=== PATIENT | male | born 1940 | race Caucasian/White ===

== ENCOUNTER 2018-05-08 06:26 | Observation (INO) | payer OTHER ==
[2018-05-05 08:57] LABS: BASOPHILS # (AUTO) 0.1 (0.0-0.1); BASOPHILS % 0.7 % (0.0-1.0); EOSINOPHILS % 0.4 % (0.0-6.0); HEMATOCRIT 41.7 % (38.2-49.6); HEMOGLOBIN 13.7 g/dL (14.0-18.0); LYMPHOCYTES # (AUTO) 1.2 (1.0-3.2); MEAN CORPUSCULAR HEMOGLOBIN 28.2 pg (28-32); MEAN CORPUSCULAR HGB CONC 32.9 g/dL (31-35); MONOCYTES # (AUTO) 0.6 (0.2-0.8); MONOCYTES % 9.4 % (4.4-11.3); NEUTROPHILS # (AUTO) 4.9 (2.1-6.9); NEUTROPHILS % 71.8 % (38.7-80.0); PLATELET COUNT 342 x10e3/uL (140-360); RED BLOOD COUNT 4.85 x10e6/uL (4.3-5.7); RED CELL DISTRIBUTION WIDTH 13.5 % (11.7-14.4)
[2018-05-05 09:15] LABS: ANION GAP 15.1 mmol/L (8-16); BLOOD UREA NITROGEN 14 mg/dL (7-26); BUN/CREATININE RATIO 17 (6-25); CALCIUM 9.5 mg/dL (8.4-10.2); CARBON DIOXIDE 27 mmol/L (22-29); CHLORIDE 101 mmol/L (98-107); CREATININE, SERUM 0.81 mg/dL (0.72-1.25); EST GLOMERULAR FILTRATION RATE > 60 ML/MIN (60-); GLUCOSE 103 mg/dL (74-118); POTASSIUM 4.1 mmol/L (3.5-5.1); SODIUM 139 mmol/L (136-145)
--- NOTE | 2018-05-05 09:32 | Diagnostic Imaging Report ---
PROCEDURE: Frontal and lateral views of the chest. COMPARISON: None. INDICATIONS: PRE-OPERATIVE CHEST X-RAY FOR RIGHT KNEE SURGERY FINDINGS: Lines/tubes: None. Lungs: The lungs are well inflated and clear. There is no evidence of pneumonia or pulmonary edema. Pleura: There is no pleural effusion or pneumothorax. Heart and mediastinum: The cardiomediastinal silhouette is unremarkable. Bones: No acute bony abnormality. IMPRESSION: No acute radiographic abnormality. Dictated by: BRONSON PRICE M.D. on 05/05/2018 at 9:43 Electronically approved by: BRONSON PRICE M.D. on 05/05/2018 at 9:43
[~2018-05-08] VITALS: Ht 170.2 cm; Wt 90.3 kg
[~2018-05-08 06:26] MED LIST: AMLODIPINE BESYL5 MG PO; FISH OIL 1,0001 EAC2 PO; GLUCOSAMINE &1 EACH PO; LOSARTAN-HCTZ1 EACH PO; ROPIVACAINE 246.25 MG, EPINEPHRINE HCL 1:1000 0.5 MG, CLONIDINE HCL 0.08 MG, KETOROLAC ... INJ ONE; SYSTANE GEL EYE10 ML OP; VITAMIN C500 M1 PO; VITAMIN D31000 UNI1 PO
--- OUTSIDE RECORDS SUMMARY | 2018-05-08 06:28 | XMS REPORT ---
Author Author [facility] Address Unknown Phone Unavailable Care Team Providers Care Sticker Machine Operator Name Role Phone GIAN ECHEVARRIA Unavailable Unavailable Problems This patient has no known problems. Allergies, Adverse Reactions, Alerts This patient has no known allergies or adverse reactions. Medications This patient has no known medications. Results Test Description Test Time Test Comments Text Results Atomic Results Result Comments CHEST 2 VIEWS 2018-05-05 09:43:00 [place] [address] Patient Name: KORTNEY FONSECA MR #: [id number] : 1940 Age/Sex: 78/M Req #: [id number] [facility] Physician: Ordered by: GIAN ECHEVARRIA MD Report #: [id number] Location: OR Room/Bed: Procedure: [id number] DX/CHEST 2 VIEWS Exam Date: 05/05/18 Exam Time: 913 REPORT STATUS: Signed PROCEDURE: Frontal and lateral views of the chest. COM PARISON: None. INDICATIONS: PRE-OPERATIVE CHEST X-RAY FOR RIGHT KNEE SURGERY FINDINGS: Lines/tubes: None. Lungs: The lungs are well inflated and clear. There is no evidence of pneumonia or pulmonary edema. Pleura: There is no pleural effusion or pneumothorax. Heart and mediastinum: The cardiomediastinal silhouette is unremarkable. Bones: No acute bony abnormality. IMPRESSION: No acute radiographic abnormality. Dictated by: BRONSON PRICE M.D. on 05/05/2018 at 9:43 Electronically approved by: BRONSON PRICE M.D. on 05/05/2018 at 9:43 Dictated By: BRONSON PRICE MD 2 Transcribed By: ADRIANA on 05/05/18942 COPY TO: GIAN ECHEVARRIA MD
[2018-05-08] MEDS ORDERED: DEXAMETHASONE SOD PHOS 10 MG/1 ML VIAL ONE (06:58)
[2018-05-08] MEDS ORDERED: VANCOMYCIN 1GM/NS 250 ML 250 ML ONE (06:58)
[2018-05-08] MEDS ORDERED: CELECOXIB 200 MG CAP ONE (06:58)
[2018-05-08] MEDS ORDERED: GABAPENTIN 300 MG CAP ONE (06:58)
[2018-05-08] MEDS ORDERED: TRANEXAMIC ACID 1,000 MG/10 ML ML ONE (07:25)
[2018-05-08] MEDS ORDERED: BACITRACIN 50,000 UNIT VIAL ONE (07:26)
[2018-05-08] MEDS ORDERED: ONDANSETRON HCL INJ 2 MG/ML VIAL IV PRN (10:45)
[2018-05-08] MEDS ORDERED: HYDROCODONE/APAP 5MG-325MG TAB PO PRN (10:45)
[2018-05-08] MEDS ORDERED: KETOROLAC TROMETHAMINE 30 MG/ML VIAL IV PRN (10:45)
[2018-05-08] MEDS ORDERED: DIPHENHYDRAMINE HCL INJ 50 MG/ML VIAL IM/IV PRN (10:45)
[2018-05-08] MEDS ORDERED: ACETAMINOPHEN 650 MG SUPP PR PRN (10:45)
[2018-05-08] MEDS ORDERED: PROMETHAZINE HCL (IM) 25 MG/ML VIAL IM PRN (10:45)
[2018-05-08] MEDS: SODIUM CHLORIDE 0.9% 1000ML 1,000 ML IV SCH ×2 (10:45→20:45)
[2018-05-08] MEDS ORDERED: DOCUSATE SODIUM 100 MG CAP PO PRN (10:45)
[2018-05-08] MEDS ORDERED: HYDROCODONE/APAP 7.5MG-325MG 1 EA TAB PO PRN (10:45)
--- NOTE | 2018-05-08 11:16 | Diagnostic Imaging Report ---
Exam: Right knee 2 views History: Postoperative evaluation Comparison: None. Findings: No fracture or malalignment. Right total knee arthroplasty with postsurgical change. No palpitation. Impression: Right total knee arthroplasty. No complication. Signed by: Dr. Bob Pompa M.D. on 05/08/2018 11:13 AM
[2018-05-08 12:38] VITALS: BP 133/66
[2018-05-08 12:40] VITALS: BP 133/66
[2018-05-08] MEDS: ACETAMINOPHEN 1000 MG/100 ML IV SCH ×2 (12:46→17:45)
[2018-05-08 13:20] VITALS: BP 137/82
[2018-05-08] MEDS ORDERED: DEXAMETHASONE SOD PHOS INJ 4 MG/ML VIAL ONE (14:16)
[2018-05-08] MEDS ORDERED: LIDOCAINE HCL 2% LOCAL INJ 5 ML SDV VIAL INJ ONE (14:16)
[2018-05-08] MEDS ORDERED: EPHEDRINE SULFATE INJ 50 MG/10 ML SYR ONE (14:16)
[2018-05-08] MEDS ORDERED: PROPOFOL IV EMULSION 10 MG/ML 20 ML VIAL ONE (14:16)
[2018-05-08] MEDS ORDERED: ONDANSETRON HCL INJ 2 MG/ML VIAL ONE (14:16)
[2018-05-08] MEDS ORDERED: SEVOFLURANE INHAL SOLN 250 ML PEN BTL ONE (14:16)
--- NOTE | 2018-05-08 14:21 | Operative Report ---
DATE OF PROCEDURE: May 08, 2018 HYPOID GEAR GENERATOR: Rodo Soriano PA-C The patient was brought to the operating room for induction of anesthesia. Throughout this case, my PA's assistance was necessary for retraction of soft tissue and positioning of the extremity. This allows for efficient and technically successful execution of the operation and is considered medically necessary. PREOPERATIVE DIAGNOSIS: Osteoarthritis, right knee. POSTOPERATIVE DIAGNOSIS: Osteoarthritis, right knee. PROCEDURE: Right total knee arthroplasty. INDICATIONS: The patient is a 78-year-old gentleman who remains highly active. He has had trouble secondary to advanced osteoarthritis in his right knee. He has been treated conservatively but continues to have symptoms. He would like to proceed with a right total knee replacement. The risks and benefits of the surgery have been discussed. He states he understands and wishes to proceed. DESCRIPTION OF PROCEDURE: The patient was brought to the operating room and placed under general anesthetic. He was given prophylactic antibiotics, a regional block and tranexamic acid in the holding area. His right lower extremity was prepped and draped in a sterile manner. A preoperative time out was performed. The extremity was exsanguinated, and a proximal tourniquet was inflated to 300 mmHg. An anterior approach with a medial parapatellar arthrotomy was performed. Soft-tissue releases were performed to bring the knee up into flexion with the patella everted. Marginal osteophytes and meniscal remnants were excised. Complete loss of the articular cartilage in the medial compartment was noted. A [employer] medial congruent knee system was used throughout the case. An extramedullary cutting guide was used to resect the proximal tibia. A 4-mm cut was made off of the affected medial compartment. The tibial baseplate was a size G. The central fin punch was impacted, and attention was directed towards the distal femur. An intramedullary cutting guide was used to resect the distal femur in 5 degrees of valgus and 3 degrees of external rotation. Rotation was further referenced off of the epicondylar axis, Hudson's line and the posterior condyle. The femoral component was a size number 9. The anterior and posterior cuts were made. Trial reductions were performed. A 10-mm ultracongruent tibial insert provided appropriate soft-tissue balancing in both flexion and extension. The patella was resurfaced with a 35-mm patellar button. The thickness was checked before and after and was noted to have approximately 25 mm in thickness. Patellar tracking was concentric. The trial implants were then removed. A 100-mL premixed pericapsular CASTRO injection was placed into the surrounding soft tissue. The knee was thoroughly irrigated with a shower-tip pulsatile lavage. The components were cemented into place using a single mix of high-viscosity Simplex cement preloaded with antibiotics. Care was taken to remove all extravasated cement. The wound was further irrigated while the cement cured. Once the cement had completely cured, the arthrotomy was closed with interrupted #1 Ethibond. The knee was put through flexion and extension to ensure a secure closure. The skin was closed with subcuticular Vicryl and missael. A sterile Aquacel bandage was applied. The patient was extubated and transported to the recovery room in stable condition. Blood loss was minimal. At the end the procedure, all needle and sponge counts were correct. Job#: [id number]
[2018-05-08] MEDS ORDERED: LIDOCAINE 2%/ EPINEPHRINE 20ML MDV ONE (15:05)
[2018-05-08] MEDS ORDERED: ROPIVACAINE 0.5% 5 MG/ML 30 ML SDV ONE (15:05)
[2018-05-08] MEDS ORDERED: FENTANYL CITRATE/PF 100MCG/2 ML INJ ONE (15:15)
[2018-05-08] MEDS ORDERED: MIDAZOLAM HCL 2 MG/2 ML VIAL ONE (15:15)
[2018-05-08 16:06] VITALS: BP 110/60
[2018-05-08] MEDS ORDERED: CELECOXIB 100 MG CAP PO SCH (17:00)
[2018-05-08] MEDS: VANCOMYCIN 1GM/NS 250 ML 250 ML IV SCH (17:03)
[2018-05-08] MEDS: ASPIRIN 325 MG TAB PO SCH (18:04)
[2018-05-08] MEDS: CELECOXIB 200 MG CAP PO SCH (18:04)
[2018-05-08 20:00] VITALS: BP 113/57
[2018-05-08 20:45] VITALS: BP 113/57
[2018-05-08] MEDS ORDERED: ZOLPIDEM TARTRATE 5 MG TAB PO PRN (21:00)
[2018-05-09] VITALS: BP 99/57
[2018-05-09] MEDS: ACETAMINOPHEN 1000 MG/100 ML IV SCH ×2 (00:29→05:26)
[2018-05-09 04:00] VITALS: BP 112/70
[2018-05-09 05:27] LABS: HEMATOCRIT 32.7 % (38.2-49.6); HEMOGLOBIN 10.8 g/dL (14.0-18.0)
[2018-05-09] MEDS: VANCOMYCIN 1GM/NS 250 ML 250 ML IV SCH (06:35)
[2018-05-09] MEDS: SODIUM CHLORIDE 0.9% 1000ML 1,000 ML IV SCH (06:45)
[2018-05-09 08:36] VITALS: BP 119/62
[2018-05-09] MEDS: ASPIRIN 325 MG TAB PO SCH (08:40)
[2018-05-09] MEDS: CELECOXIB 200 MG CAP PO SCH (08:40)
[2018-05-09] MEDS ORDERED: LOSARTAN POTASSIUM 25 MG TAB PO SCH (09:00)
[2018-05-09] MEDS ORDERED: HYDROCHLOROTHIAZIDE 25 MG TAB PO SCH (09:00)
[2018-05-09 10:19] VITALS: BP 119/62
[2018-05-09] MEDS ORDERED: ACETAMINOPHEN 1000 MG/100 ML IV PRN (10:45)
[2018-05-09 12:01] VITALS: BP 100/57
[2018-05-09] MEDS ORDERED: ASPIRIN325 MG PO (12:07)
[2018-05-09] MEDS ORDERED: LIDOCAINE 2%/ EPINEPHRINE 20ML MDV IV ONE (13:26)
[2018-05-09] MEDS ORDERED: ROPIVACAINE 0.5% 5 MG/ML 30 ML SDV INJ ONE (13:26)
[2018-05-09] MEDS ORDERED: AMLODIPINE BESYLATE 5 MG TAB PO SCH (21:00)
== END 2018-05-09 13:27 | disposition home health service (06) ==
LOC: OR 06:26 → PACU V 10:47 → MED/SURG 11:45
PROVIDERS: ADMIT Specialist; ATTEND Specialist
DX: M17.11 Unilateral primary osteoarthritis, right knee (principal); I10 Essential (primary) hypertension; Z85.46 Personal history of malignant neoplasm of prostate; Z88.0 Allergy status to penicillin; Z88.2 Allergy status to sulfonamides
CPT/HCPCS: 27447; 36415 ×2; 71046; 73560; 80048; 85014; 85018; 85025; 86850; 86900; 86920; 97116 ×2; 97161; G0378 ×2; G8978; G8979; J0131 ×2; J0171; J1100 ×2; J1885; J2001 ×3; J2250; J2405; J2704; J2795 ×2; J3370 ×2; J7030; C1713; C1776

== ENCOUNTER → 2024-08-13 | Day surgery (SDC) | payer MEDICARE ==
[~2024-08-13] MED LIST changes: +ACETAMINOPHEN 1000 MG/100 ML 100 ML IV ONE; +ACETAMINOPHEN 1000 MG/100 ML IV PRN; +ASPIRIN 325 MG TAB PO SCH; +ASPIRIN325 MG PO; +ASPIRIN81 MG PO; +BUPIVACAINE 0.5%/EPI 30 ML SDV INJ ONE; +CELECOXIB 100 MG CAP PO SCH; +DEXAMETHASONE SOD PHOS INJ 4 MG/ML SDV ONE; +DIPHENHYDRAMINE HCL INJ 50 MG/ML VIAL IV PRN; +DOCUSATE SODIUM 100 MG CAP PO PRN; +EPHEDRINE SULFATE INJ 50 MG/ML VIAL ONE; +FENTANYL CITRATE/PF 100MCG/2 ML INJ ONE; +GABAPENTIN300 MG PO; +HYDROCODONE/APAP 5MG-325MG TAB PO PRN; +HYDROCODONE/APAP 7.5MG-325MG 1 EA TAB PO PRN; +LIDOCAINE HCL 2% LOCAL INJ 5 ML SDV VIAL INJ ONE; +MELOXICAM7.5 MG PO; +ONDANSETRON HCL INJ 2MG/ML 2ML 2 MG/ML VIAL IV PRN; +ONDANSETRON HCL INJ 2MG/ML 2ML 2 MG/ML VIAL ONE; +PROPOFOL IV EMULSION 10 MG/ML 20 ML VIAL ONE; -ROPIVACAINE 246.25 MG, EPINEPHRINE HCL 1:1000 0.5 MG, CLONIDINE HCL 0.08 MG, KETOROLAC ... INJ ONE; +ROPIVACAINE/EPI/CLONIDINE/KET 50 ML SYRINGE INJ ONE; +SEVOFLURANE INHAL SOLN 250 ML PEN BTL ONE; +SODIUM CHLORIDE 0.9% 1000ML 1,000 ML IV SCH; +TRANEXAMIC ACID 1,000 MG/10 ML ML ONE
[2024-08-13] MEDS: CEFAZOLIN SODIUM 2 GM ONE (06:13)
[2024-08-13] MEDS: LACTATED RINGER'S 1,000 ML ONE (06:13)
[2024-08-13] MEDS: DEXAMETHASONE SOD PHOS 10 MG/1 ML VIAL ONE (06:14)
[2024-08-13] MEDS: GABAPENTIN 300 MG CAP ONE (06:14)
[2024-08-13] MEDS: CELECOXIB 200 MG CAP ONE (06:15)
[2024-08-13 08:36] VITALS: TEMP 98
[2024-08-13 12:45] VITALS: BP 128/75; PULSE 74; RESP 16; O2SAT 97
[2024-08-13] MEDS: HYDROCODONE/APAP 7.5MG-325MG 1 EA TAB ONE (12:55)
== END | disposition home health service (06) ==
LOC: OR 05:17
PROVIDERS: ATTEND Specialist
DX: M17.12 Unilateral primary osteoarthritis, left knee (principal); Z96.651 Presence of right artificial knee joint; I10 Essential (primary) hypertension; Z88.0 Allergy status to penicillin; Z88.2 Allergy status to sulfonamides; Z79.899 Other long term (current) drug therapy; Z79.82 Long term (current) use of aspirin; Z79.1 Long term (current) use of non-steroidal anti-inflammatories (NSAID); Z87.891 Personal history of nicotine dependence
CPT/HCPCS: 27447; 73560; 86850; 86900; 97110; 97116 ×2; 97161; 97530; C1713 ×2; C1776 ×3; J0131; J0690; J1100 ×2; J2003; J2405; J2704; J3010; J7121